=== PATIENT | female | born 1925 | race Caucasian/White ===

== ENCOUNTER 2017-03-29 22:40 | Inpatient (IN) | payer MEDICARE, MEDICAID ==
[~2017-03-29] VITALS: Ht 142.2 cm; Wt 43.3 kg
[~2017-03-29 22:40] MED LIST: ALEN35TA6 PO; LEVO500T33 PO; LISI30TA4 PO; OSEL75CA PO
[2017-03-29] MEDS ORDERED: ONDANSETRON 2MG/ML, 2ML IVPush ONE (23:30)
[2017-03-29] MEDS ORDERED: MORPHINE SULFATE 4 MG/ML, 1ML ONE (23:43)
[2017-03-29] MEDS ORDERED: ONDANSETRON 2MG/ML, 2ML ONE (23:43)
[2017-03-29] MEDS: MORPHINE SULFATE 4 MG/ML, 1ML IVPush PRN (23:46)
[2017-03-30] MEDS ORDERED: MORPHINE SULFATE 4 MG/ML, 1ML ONE (01:11)
[2017-03-30] MEDS: MORPHINE SULFATE 4 MG/ML, 1ML IVPush PRN (01:14)
[2017-03-30] MEDS ORDERED: MORPHINE SULFATE 4 MG/ML, 1ML IVPush PRN (02:30)
[2017-03-30] MEDS ORDERED: ONDANSETRON 2MG/ML, 2ML IVPush PRN (02:30)
[2017-03-30] MEDS ORDERED: SODIUM CHLORIDE FLUSH 10ML SYR IVF PRN (02:30)
[2017-03-30 02:53] LABS: BLOOD UREA NITROGEN 21 mg/dL (7-18)
[2017-03-30] MEDS ORDERED: ACETAMINOPHEN 325 MG TABLET PO PRN (04:00)
[2017-03-30] MEDS ORDERED: DOCUSATE 100 MG CAPSULE PO PRN (04:00)
[2017-03-30] MEDS ORDERED: hydrALAzine 20 MG/ML, 1ML IVPush PRN (04:00)
[2017-03-30] MEDS ORDERED: BISACODYL 10 MG SUPP PR PRN (04:00)
[2017-03-30] MEDS ORDERED: POLYETHYLENE GLYCOL 17 GM PACKET PO PRN (04:00)
[2017-03-30] MEDS ORDERED: TRAZODONE 50MG TABLET PO PRN (04:00)
[2017-03-30] MEDS: HEPARIN 5,000 UNITS/ML, 1ML SQ SCH ×3 (04:20→19:56)
[2017-03-30] MEDS: SODIUM CHLORIDE 0.9% 1,000 ML IV SCH ×2 (04:20→20:05)
[2017-03-30 07:32] VITALS: BP 122/74
[2017-03-30] MEDS: morphine SULFATE 10 MG/ML, 1ML IVPush PRN ×2 (08:39→12:06)
[2017-03-30 13:21] VITALS: BP 143/80
[2017-03-30] MEDS: HYDROcodone/APAP 5/325 TABLET PO PRN (18:36)
[2017-03-30 21:09] VITALS: BP 155/52
[2017-03-31] MEDS: HYDROcodone/APAP 5/325 TABLET PO PRN ×3 (01:12→14:56)
[2017-03-31 01:42] VITALS: BP 157/74
[2017-03-31] MEDS: morphine SULFATE 10 MG/ML, 1ML IVPush PRN (01:52)
[2017-03-31] MEDS: HEPARIN 5,000 UNITS/ML, 1ML SQ SCH ×2 (04:08→13:29)
[2017-03-31 05:11] LABS: BLOOD UREA NITROGEN 14 mg/dL (7-18)
[2017-03-31] MEDS: SODIUM CHLORIDE 0.9% 1,000 ML IV SCH (06:19)
[2017-03-31 08:25] VITALS: BP 136/66
[2017-03-31] MEDS ORDERED: HYDR-3240 PO (12:55)
[2017-03-31 14:30] VITALS: BP 121/70
== END 2017-03-31 16:00 | disposition home or self-care (01) | DRG 543 ==
LOC: ED 23:59 → EDIP 03-30 02:22 → 4NOR 03-30 03:19 → DCLOUNGE 03-31 15:03
PROVIDERS: ADMIT Internal Medicine; ATTEND Internal Medicine
DX: M80.022A Age-related osteoporosis with current pathological fracture, left humerus, initial encounter for fracture (principal); S42.302A Unspecified fracture of shaft of humerus, left arm, initial encounter for closed fracture; S52.509A Unspecified fracture of the lower end of unspecified radius, initial encounter for closed fracture; E44.1 Mild protein-calorie malnutrition; M80.032A Age-related osteoporosis with current pathological fracture, left forearm, initial encounter for fracture; I10 Essential (primary) hypertension; D72.828 Other elevated white blood cell count; W19.XXXA Unspecified fall, initial encounter; Y93.89 Activity, other specified; Y92.89 Other specified places as the place of occurrence of the external cause
CPT/HCPCS: 36415; 80048; 82040; 85025; 85610; 93005; 96374; 96375; J1644; J2405; J2270; J7030

== ENCOUNTER 2017-04-03 11:48 | Emergency (ER) | payer MEDICARE, MEDICAID ==
[~2017-04-03] VITALS: Ht 142.2 cm; Wt 41.5 kg
[~2017-04-03 11:48] MED LIST changes: +HYDR-3240 PO
[2017-04-03 14:26] VITALS: BP 142/74
== END 2017-04-03 14:37 | disposition home or self-care (01) ==
LOC: ED 14:07
DX: S42.202A Unspecified fracture of upper end of left humerus, initial encounter for closed fracture (principal); S52.502A Unspecified fracture of the lower end of left radius, initial encounter for closed fracture; W19.XXXA Unspecified fall, initial encounter; Y93.89 Activity, other specified; Y92.89 Other specified places as the place of occurrence of the external cause; Y99.9 Unspecified external cause status; I10 Essential (primary) hypertension
CPT/HCPCS: 99281